=== PATIENT | female | born 1980 | race Caucasian/White ===

== ENCOUNTER 2019-12-06 14:58 | Outpatient (CLI) | payer OTHER | END 2019-12-06 15:04 | disposition home or self-care (01) | LOC: MAMO-SONO 14:58 | DX: Z12.31 Encounter for screening mammogram for malignant neoplasm of breast (principal); N60.11 Diffuse cystic mastopathy of right breast; N60.12 Diffuse cystic mastopathy of left breast ==

== ENCOUNTER 2019-12-07 08:14 | Outpatient (CLI) | payer OTHER | END 2019-12-07 15:00 | disposition home or self-care (01) | LOC: LAB 08:14 | DX: N95.1 Menopausal and female climacteric states (principal); E28.39 Other primary ovarian failure; E04.1 Nontoxic single thyroid nodule; E78.00 Pure hypercholesterolemia, unspecified; E55.9 Vitamin D deficiency, unspecified ==

== ENCOUNTER 2019-12-12 13:20 | Outpatient (CLI) | payer OTHER | END 2019-12-12 13:26 | disposition home or self-care (01) | LOC: LAB 13:20 | DX: N95.1 Menopausal and female climacteric states (principal); E28.39 Other primary ovarian failure; E04.1 Nontoxic single thyroid nodule; E78.00 Pure hypercholesterolemia, unspecified; E55.9 Vitamin D deficiency, unspecified ==

== ENCOUNTER → 2020-04-19 11:17 | Outpatient (CLI) | payer OTHER ==
[~2020-04-19 11:17] MED LIST: COLACE100 MG PO; NEURONTIN600 M1 PO; PERCOCET 5-3251 EACH PO
== END | disposition home or self-care (01) ==
LOC: LAB 11:17
PROVIDERS: ATTEND Obstetrics & Gynecology
DX: N95.1 Menopausal and female climacteric states (principal); N92.1 Excessive and frequent menstruation with irregular cycle; Z01.818 Encounter for other preprocedural examination; K40.90 Unilateral inguinal hernia, without obstruction or gangrene, not specified as recurrent

== ENCOUNTER 2020-04-30 05:57 | Day surgery (SDC) | payer OTHER ==
[2020-04-30] MEDS ORDERED: PERCOCET 5-3251 EACH PO (10:02)
[2020-04-30] MEDS ORDERED: COLACE100 MG PO (10:02)
[2020-04-30] MEDS ORDERED: NEURONTIN600 M1 PO (10:02)
== END 2020-04-30 14:31 | disposition home or self-care (01) ==
LOC: CIR.AMB 05:57 → ADM 11:15 → CIR.AMB 11:15
PROVIDERS: ATTEND Surgery
DX: K40.90 Unilateral inguinal hernia, without obstruction or gangrene, not specified as recurrent (principal)

== ENCOUNTER → 2023-07-22 10:23 | Outpatient (CLI) | payer OTHER | END | disposition home or self-care (01) | LOC: LAB 10:23 | PROVIDERS: ATTEND Obstetrics & Gynecology | DX: N95.1 Menopausal and female climacteric states (principal); E04.1 Nontoxic single thyroid nodule; E55.9 Vitamin D deficiency, unspecified; E78.00 Pure hypercholesterolemia, unspecified; N39.0 Urinary tract infection, site not specified; R19.5 Other fecal abnormalities; R97.8 Other abnormal tumor markers; E11.9 Type 2 diabetes mellitus without complications; K76.9 Liver disease, unspecified; Z88.6 Allergy status to analgesic agent ==

== ENCOUNTER 2023-10-06 16:58 | Outpatient (CLI) | payer OTHER ==
[2023-10-06 17:32] LABS: ob NEGATIVE (NEGATIVE)
== END 2023-10-06 17:05 | disposition home or self-care (01) ==
LOC: LAB 16:58
PROVIDERS: ATTEND Obstetrics & Gynecology
DX: N95.1 Menopausal and female climacteric states (principal); E28.39 Other primary ovarian failure; E04.1 Nontoxic single thyroid nodule; E55.9 Vitamin D deficiency, unspecified; E78.00 Pure hypercholesterolemia, unspecified; N39.0 Urinary tract infection, site not specified; E08.00 Diabetes mellitus due to underlying condition with hyperosmolarity without nonketotic hyperglycemic-hyperosmolar coma (NKHHC); R19.5 Other fecal abnormalities; R97.8 Other abnormal tumor markers; K76.9 Liver disease, unspecified

== ENCOUNTER 2025-06-03 08:34 | Outpatient (CLI) | payer OTHER ==
[2025-06-03 09:54] LABS: URINE APPEARANCE Clear; URINE BILIRRUBIN Negative (NEGATIVE); URINE BLOOD Negative; URINE COLOR Yellow; URINE GLUCOSE Negative (NEGATIVE); URINE KETONE Negative (NEGATIVE); URINE LEUKOCYTE Negative; URINE NITRATE Negative; URINE PROTEIN Negative (NEGATIVE); URINE UROBILINOGEN 0.2 E.U./dl
[2025-06-03 09:55] LABS: URINE BACTERIA 1010.1 uL (0.0-1933); URINE EPITHELIAL CELLS 14.1 uL (0.0-38.8); URINE RBC 9.0 uL (0.0-20.8); URINE WBC 2.7 uL (0.0-23.2)
[2025-06-03 10:14] LABS: URINE CAST 0.00 uL (0.0-1.40)
[2025-06-03 10:14] LABS: BASO % 0.5 % (0.1-1.2); EOS # 0.22 (0.04-0.54); EOS % 3.7 % (0.7-7.0); LYMPH # 2.17 (1.18-3.74); LYMPH % 36.6 % (19.3-53.1); MEAN PLATELET VOLUME 10.40 fl (9.4-12.4); MONO # 0.38 (0.24-0.82); MONO % 6.4 % (4.7-12.5); NEUT # 3.12 (1.56-6.13); NEUT % 52.6 % (34.0-71.1); RED CELL DISTRIBUTION WIDTH 11.9 % (11.6-14.4)
[2025-06-03 11:16] LABS: VITAMIN D3 25 HYDROXY 60.38 ng/ml (30-120)
[2025-06-03 11:24] LABS: ALT/SGPT 21.0 U/L (12-78); AST/SGOT 5.0 U/L (15-37); BILIRUBIN TOTAL 0.8 mg/dL (0.3-1.2); BUN CREA RATIO 14.0 (7.0-25.0); CHOL HDL RATIO 1.5 (0-5.0); CREATININE SERUM 0.85 mg/dL (0.55-1.02); FREE TRIODOTIRONINE 2.32 pg/ml (2.18-3.98); GFR 73.34; GLOBULINA 2.9 G/DL (2.4-3.5); GLUCOSE FASTING 88.0 mg/dL (65-100); HDL 121.0 mg/dl (40-60); LDL 46.0 mg/dl (0-130); OSMOLALITY SERUM 280.0 MOSM/KG (275-295); T4 TOTAL 9.01 UG/DL (4.8-13.9); TSH 1.33 uIU/mL (0.358-3.74); VLDL 10.0 (0-39)
[2025-06-05 09:11] LABS: ANTI THYROID PEROXIDASE < 9 IU/mL (0-34); ESTRADIOL SERUM 114.0 pg/mL (.)
== END 2025-06-03 08:37 | disposition home or self-care (01) ==
LOC: LAB 08:34
PROVIDERS: ATTEND Obstetrics & Gynecology
DX: N95.1 Menopausal and female climacteric states (principal); E28.319 Asymptomatic premature menopause; E55.9 Vitamin D deficiency, unspecified; E78.00 Pure hypercholesterolemia, unspecified; E08.00 Diabetes mellitus due to underlying condition with hyperosmolarity without nonketotic hyperglycemic-hyperosmolar coma (NKHHC); N39.0 Urinary tract infection, site not specified; R19.5 Other fecal abnormalities; R97.8 Other abnormal tumor markers; E11.9 Type 2 diabetes mellitus without complications; K76.9 Liver disease, unspecified

== ENCOUNTER 2025-06-11 10:57 | Outpatient (CLI) | payer OTHER ==
[2025-06-11 12:02] LABS: ob NEGATIVE (NEGATIVE)
== END 2025-06-11 11:09 | disposition home or self-care (01) ==
LOC: LAB 10:57
PROVIDERS: ATTEND Obstetrics & Gynecology
DX: N95.1 Menopausal and female climacteric states (principal); E04.1 Nontoxic single thyroid nodule; E55.9 Vitamin D deficiency, unspecified; E78.00 Pure hypercholesterolemia, unspecified; E08.00 Diabetes mellitus due to underlying condition with hyperosmolarity without nonketotic hyperglycemic-hyperosmolar coma (NKHHC); N39.0 Urinary tract infection, site not specified; R19.5 Other fecal abnormalities; R97.8 Other abnormal tumor markers; E11.9 Type 2 diabetes mellitus without complications; K76.9 Liver disease, unspecified